=== PATIENT | female | born 1985 | race American Indian/Alaskan Native ===

== ENCOUNTER 2017-01-30 12:10 | Outpatient (CLI) | payer BC ==
[2017-01-30 12:27] VITALS: BP 107/67
[2017-01-30] MEDS ORDERED: LACTATED RINGERS 500 ML IV ONE (12:31)
[2017-01-30 14:14] LABS: Bacteria,Urine 2+ /HPF (Negative); Bilirubin,Urine NEG (Negative); Blood,Urine NEG (Negative); Ketones,Urine NEG (Negative); Leukocyte Esterase,Urine NEG (Negative); Mucus,Urine 1+ /HPF; Nitrite,Urine NEG (Negative); Protein,Urine <15 mg/dL mg/dL (Negative); Urobilinogen,Urine < 2.0 mg/dL (<2.0)
== END 2017-01-30 14:44 | disposition home or self-care (01) ==
LOC: TRG 12:10
PROVIDERS: ATTEND Obstetrics & Gynecology
DX: O47.03 False labor before 37 completed weeks of gestation, third trimester (principal); Z3A.30 30 weeks gestation of pregnancy
CPT/HCPCS: 59025; 81001

== ENCOUNTER 2018-04-08 23:25 | Emergency (ER) | payer BC ==
[2018-04-08 23:35] VITALS: BP 124/82
[2018-04-09 00:32] LABS: HCG Qualitative,Urine Negative (Negative)
[2018-04-09] MEDS ORDERED: TRIMOX PO ONE (00:43)
[2018-04-09] MEDS ORDERED: ULTRAM PO ONE (00:43)
--- NOTE | 2018-04-09 01:05 | Emergency Department Report ---
ED ENT HPI - General Chief complaint: Dental/Oral Stated complaint: TOOTHACHE Time Seen by Provider: 04/09/18 00:42 Source: patient Mode of arrival: Ambulatory Limitations: No Limitations - History of Present Illness Initial comments: Patient 32-year-old -[place] female who presents for dental pain 3 days history of infected pain is 5/10 and aching throbbing there is no facial or gum swelling patient states has not been able to see a dentist however is tolerating by mouth intake is no further ear pain no fever or chills MD complaint: tooth pain Onset/Timin -: days(s) Location: tooth # (2 chipped mild gum erythema no faciall swelling no stridor uvual midline no ear pain ) Severity scale (0 -10): 5 Quality: aching Consistency: constant Improves with: none Worsens with: other (hot and cold stimuli ) Associated Symptoms: denies: gum swelling, pain with swallowing, discharge from ear - Related Data Home Medications Medication Instructions Recorded Confirmed Last Taken Fe Fumarate/FA/Mv, Min Comb#15 325 mg PO DAILY 03/28/17 03/28/17 03/27/17 12:00 Previous Rx's Medication Instructions Recorded Last Taken Type Docusate Sodium [Colace] 100 mg PO BID PRN #60 capsule 03/29/17 Unknown Rx Ferrous Sulfate [Feosol 325 MG tab] 325 mg PO BID #60 tablet 03/29/17 Unknown Rx Ibuprofen [Motrin 800 MG tab] 800 mg PO TID PRN #30 tablet 03/29/17 Unknown Rx Lidocain2.5%/Prilocai2.5% [Emla] 5 gm TP PRN #1 tube 03/29/17 Unknown Rx Amoxicillin [Trimox CAP] 500 mg PO Q8H #30 capsule 04/09/18 Unknown Rx Chlorhexidine Mouthwash [Peridex] 15 ml MM BID #1 bottle 04/09/18 Unknown Rx traMADol [Ultram] 50 mg PO Q8HR PRN #15 tablet 04/09/18 Unknown Rx Allergies Allergy/AdvReac Type Severity Reaction Status Date / Time No Known Allergies Allergy Verified 03/28/17 03:54 ED Dental HPI - General Chief complaint: Dental/Oral Stated complaint: TOOTHACHE Time Seen by Provider: 04/09/18 00:42 Source: patient Mode of arrival: Ambulatory Limitations: No Limitations - Related Data Home Medications Medication Instructions Recorded Confirmed Last Taken Fe Fumarate/FA/Mv, Min Comb#15 325 mg PO DAILY 03/28/17 03/28/17 03/27/17 12:00 Previous Rx's Medication Instructions Recorded Last Taken Type Docusate Sodium [Colace] 100 mg PO BID PRN #60 capsule 03/29/17 Unknown Rx Ferrous Sulfate [Feosol 325 MG tab] 325 mg PO BID #60 tablet 03/29/17 Unknown Rx Ibuprofen [Motrin 800 MG tab] 800 mg PO TID PRN #30 tablet 03/29/17 Unknown Rx Lidocain2.5%/Prilocai2.5% [Emla] 5 gm TP PRN #1 tube 03/29/17 Unknown Rx Amoxicillin [Trimox CAP] 500 mg PO Q8H #30 capsule 04/09/18 Unknown Rx Chlorhexidine Mouthwash [Peridex] 15 ml MM BID #1 bottle 04/09/18 Unknown Rx traMADol [Ultram] 50 mg PO Q8HR PRN #15 tablet 04/09/18 Unknown Rx Allergies Allergy/AdvReac Type Severity Reaction Status Date / Time No Known Allergies Allergy Verified 03/28/17 03:54 ED Review of Systems ROS: Stated complaint: TOOTHACHE Other details as noted in HPI Constitutional: denies: chills, fever Eyes: denies: eye pain, eye discharge, vision change ENT: dental pain Respiratory: denies: cough, shortness of breath, wheezing Cardiovascular: denies: chest pain, palpitations Endocrine: no symptoms reported Gastrointestinal: denies: abdominal pain, nausea, diarrhea Genitourinary: denies: urgency, dysuria, discharge Musculoskeletal: denies: back pain, joint swelling, arthralgia Skin: denies: rash, lesions Neurological: denies: headache, weakness, paresthesias Psychiatric: denies: anxiety, depression Hematological/Lymphatic: denies: easy bleeding, easy bruising ED Past Medical Hx - Past Medical History Previous Medical History?: No Hx Hypertension: No Hx Congestive Heart Failure: No Hx Diabetes: No Hx Deep Vein Thrombosis: No Hx Renal Disease: No Hx Sickle Cell Disease: No Hx Seizures: No Hx Asthma: No Hx COPD: No Hx HIV: No - Surgical History Past Surgical History?: No - Social History Smoking Status: Never Smoker Substance Use Type: None - Medications Home Medications: Home Medications Medication Instructions Recorded Confirmed Last Taken Type Fe Fumarate/FA/Mv, Min Comb#15 325 mg PO DAILY 03/28/17 03/28/17 03/27/17 12:00 History Docusate Sodium [Colace] 100 mg PO BID PRN #60 capsule 03/29/17 Unknown Rx Ferrous Sulfate [Feosol 325 MG tab] 325 mg PO BID #60 tablet 03/29/17 Unknown Rx Ibuprofen [Motrin 800 MG tab] 800 mg PO TID PRN #30 tablet 03/29/17 Unknown Rx Lidocain2.5%/Prilocai2.5% [Emla] 5 gm TP PRN #1 tube 03/29/17 Unknown Rx Amoxicillin [Trimox CAP] 500 mg PO Q8H #30 capsule 04/09/18 Unknown Rx Chlorhexidine Mouthwash [Peridex] 15 ml MM BID #1 bottle 04/09/18 Unknown Rx traMADol [Ultram] 50 mg PO Q8HR PRN #15 tablet 04/09/18 Unknown Rx ED Physical Exam - General Limitations: No Limitations General appearance: alert, in no apparent distress - Head Head exam: Present: atraumatic, normocephalic - Eye Eye exam: Present: normal appearance - ENT ENT exam: Present: mucous membranes moist, TM's normal bilaterally, normal external ear exam - Expanded ENT Exam Expanded Mouth exam: Present: normal external inspection, tongue normal. Absent: trismus , muffled voice, tongue elevation Teeth exam: Present: dental caries (2). Absent: gingival enlargement Throat exam: Positive: normal inspection - Neck Neck exam: Present: normal inspection, full ROM. Absent: tenderness, lymphadenopathy, thyromegaly - Expanded Neck Exam Expanded Neck exam: Absent: anterior neck swelling, thyroid mass, carotid bruit, tracheal deviation - Respiratory Respiratory exam: Present: normal lung sounds bilaterally. Absent: respiratory distress, wheezes, stridor, chest wall tenderness - Cardiovascular Cardiovascular Exam: Present: regular rate, normal rhythm, normal heart sounds. Absent: systolic murmur, diastolic murmur, rubs, gallop - GI/Abdominal GI/Abdominal exam: Present: soft, normal bowel sounds. Absent: tenderness, bruit, hernia - Rectal Rectal exam: Present: deferred - Extremities Exam Extremities exam: Present: normal inspection - Back Exam Back exam: Present: normal inspection - Neurological Exam Neurological exam: Present: alert, oriented X3, CN II-XII intact, normal gait - Psychiatric Psychiatric exam: Present: normal affect, normal mood - Skin Skin exam: Present: warm, dry, intact, normal color. Absent: rash ED Course Vital Signs 04/08/18 23:31 Temperature 99.1 F Pulse Rate 84 Respiratory 18 Rate Blood Pressure 124/82 O2 Sat by Pulse 100 Oximetry ED Medical Decision Making - Medical Decision Making This is infected dental caries no focal abscess no ear or throat pain patient tolerating by mouth intake without problems plan follow-up with [facility] amoxicillin Peridex Ultram when necessary pain patient verbalizes agreement and understanding with saline will be DC'd home in stable condition at this time Critical care attestation.: If time is entered above; I have spent that time in minutes in the direct care of this critically ill patient, excluding procedure time. ED Disposition Clinical Impression: Infected dental carries Disposition: DC-01 TO HOME OR SELFCARE Is pt being admited?: No Does the pt Need Aspirin: No Condition: Good Instructions: Dental Caries (ED) Prescriptions: Amoxicillin [Trimox CAP] 500 mg PO Q8H #30 capsule Chlorhexidine Mouthwash [Peridex] 15 ml MM BID #1 bottle traMADol [Ultram] 50 mg PO Q8HR PRN #15 tablet PRN Reason: Pain Referrals: PRIMARY CARE,MD [Primary Care Provider] - 3-5 Days Forms: Work/School Release Form(ED) Time of Disposition: 01:11
== END 2018-04-09 01:19 | disposition home or self-care (01) ==
LOC: ED 23:25
DX: K02.9 Dental caries, unspecified (principal); K04.7 Periapical abscess without sinus; Z79.899 Other long term (current) drug therapy
CPT/HCPCS: 81025; 99282

== ENCOUNTER 2018-09-19 20:27 | Emergency (ER) | payer OTHER, BC ==
[2018-09-19 21:07] VITALS: BP 117/84
[2018-09-19] MEDS ORDERED: TYLENOL PO ONE (21:07)
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
[2018-09-19] MEDS ORDERED: NORCO 5/325 PO STA (23:19)
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
== END 2018-09-19 23:35 | disposition home or self-care (01) ==
LOC: ED 20:27
DX: S16.1XXA Strain of muscle, fascia and tendon at neck level, initial encounter (principal); R25.2 Cramp and spasm; M54.5 Low back pain; M25.562 Pain in left knee; V89.2XXA Person injured in unspecified motor-vehicle accident, traffic, initial encounter; Y93.89 Activity, other specified; Y99.8 Other external cause status; Y92.410 Unspecified street and highway as the place of occurrence of the external cause
CPT/HCPCS: 72040; 72100; 99283